=== PATIENT | male | born 1980 | race Two or more races ===

== ENCOUNTER 2022-10-19 12:26 | Emergency (ER) | payer SELFPAY ==
[~2022-10-19] VITALS: Ht 177.8 cm; Wt 113.6 kg
[2022-10-19 12:48] VITALS: BP 129/99
== END 2022-10-19 16:06 | disposition left against medical advice (07) ==
LOC: EMS 12:26
DX: Z53.21 Procedure and treatment not carried out due to patient leaving prior to being seen by health care provider (principal)
CPT/HCPCS: 99281; Z7502

== ENCOUNTER 2023-03-13 06:46 | Emergency (ER) | payer OTHER ==
[~2023-03-13] VITALS: Ht 180.3 cm; Wt 86.4 kg
[2023-03-13 06:54] VITALS: BP 155/65; PULSE 94; RESP 18; TEMP 98.4
[2023-03-13] MEDS ORDERED: HydrOXYzine PAMOATE 50 MG CAPSULE PO ONE (07:00)
== END 2023-03-13 08:20 | disposition home or self-care (01) ==
LOC: EMS 06:47
DX: F41.9 Anxiety disorder, unspecified (principal); F17.210 Nicotine dependence, cigarettes, uncomplicated; F12.90 Cannabis use, unspecified, uncomplicated; Z90.49 Acquired absence of other specified parts of digestive tract
CPT/HCPCS: 99283